=== PATIENT | female | born 1970 | race Native Hawaiian/Other Pacific Islander ===

== ENCOUNTER 2016-07-09 14:12 | Outpatient (CLI) | payer OTHER | END 2016-07-09 22:41 | disposition home or self-care (01) | LOC: RAD 14:12 | DX: M54.89 Other dorsalgia (principal) ==

== ENCOUNTER 2016-08-21 08:03 | Emergency (ER) | payer OTHER ==
[~2016-08-21] VITALS: Ht 152.4 cm; Wt 70.3 kg
== END 2016-08-21 08:50 | disposition home or self-care (01) ==
LOC: ED 08:03
DX: T22.192A Burn of first degree of multiple sites of left shoulder and upper limb, except wrist and hand, initial encounter (principal); T22.191A Burn of first degree of multiple sites of right shoulder and upper limb, except wrist and hand, initial encounter; T31.10 Burns involving 10-19% of body surface with 0% to 9% third degree burns; X02.0XXA Exposure to flames in controlled fire in building or structure, initial encounter; Y92.89 Other specified places as the place of occurrence of the external cause
CPT/HCPCS: 99282

== ENCOUNTER 2016-10-02 10:30 | Outpatient (CLI) | payer OTHER | END 2016-10-02 19:15 | disposition home or self-care (01) | LOC: US 10:30 | DX: R10.11 Right upper quadrant pain (principal) ==